=== PATIENT | male | born 1930 | race Caucasian/White ===

== ENCOUNTER → 2017-08-08 | Outpatient (CLI) | payer OTHER ==
[~2017-08-08] MED LIST: IBUP-103 PO; MULT-506 PO; NXM/40 PO; OMEG10007 PO; PLV75 PO; ZCR40 PO
[2017-08-08 09:29] LABS: BASO % 0.5 %; BASO ABS # 0.04 K/uL (0-0.2); EOS % 2.7 %; EOS ABS # 0.22 K/uL (0-0.5); HEMATOCRIT 45.4 % (42-52); HEMOGLOBIN 15.1 g/dL (14.0-18.0); IG# 0.03 K/uL (0.00-0.02); LYMPH % 32.9 %; LYMPH ABS # 2.73 K/uL (1.2-3.4); MEAN CELL VOLUME 95.6 fL (80-100); MEAN CORPUSCULAR HEMOGLOBIN 31.8 pg (25-34); MEAN CORPUSCULAR HGB CONC 33.3 g/dl (32-36); MEAN PLATELET VOLUME 10.7 fL (7.4-10.4); MONO % 8.2 %; MONO ABS # 0.68 K/uL (0.11-0.59); NEUT % 55.3 %; PLATELET COUNT 193 K/uL (130-400); RED CELL DISTRIBUTION WIDTH CV 15.4 % (11.5-14.5); RED CELL DISTRIBUTION WIDTH SD 53.9 fL (36.4-46.3)
[2017-08-08 09:59] LABS: ALBUMIN 3.3 gm/dl (3.4-5.0); ALT/SGPT 28 U/L (12-78); AST/SGOT 49 U/L (15-37); BLOOD UREA NITROGEN 24 mg/dl (7-18); CALCIUM 8.6 mg/dl (8.5-10.1); CARBON DIOXIDE 29 mmol/L (21-32); CREATININE 1.09 mg/dl (0.60-1.40); GLUCOSE 101 mg/dl (70-99); POTASSIUM 4.3 mmol/L (3.5-5.1); SODIUM 140 mmol/L (136-145)
[2017-08-08 10:09] LABS: ALKALINE PHOSPHATASE 118 U/L (45-117); TOTAL PROTEIN 8.2 gm/dl (6.4-8.2)
== END | disposition home or self-care (01) ==
LOC: C.LAB 08:35
PROVIDERS: ATTEND Internal Medicine
DX: Z00.00 Encounter for general adult medical examination without abnormal findings (principal); R73.01 Impaired fasting glucose; R26.0 Ataxic gait; E78.5 Hyperlipidemia, unspecified; G47.36 Sleep related hypoventilation in conditions classified elsewhere; I63.9 Cerebral infarction, unspecified